=== PATIENT | male | born 1960 | race Caucasian/White ===

== ENCOUNTER → 2024-07-17 13:47 | Outpatient (REF) | payer BC, SELFPAY | LOC: RCS 13:47 | PROVIDERS: ATTENDING PHYSICIAN Student in an Organized Health Care Education/Training Program; FAMILY PHYSICIAN Nurse Practitioner Adult Health | DX: I25.10 Atherosclerotic heart disease of native coronary artery without angina pectoris (principal) | CPT/HCPCS: 93306 ==

== ENCOUNTER 2024-08-21 08:28 | Emergency (ER) | payer SELFPAY ==
[2024-08-21 08:54] VITALS: BMI 27.3
[2024-08-21 09:10] VITALS: BP 134/74
--- NOTE | 2024-08-21 09:18 | ED.GENMED ---
History of Present Illness
General
Chief Complaint: Breathing Problem
Source: patient
Time Seen by Provider: 08/21/24 08:49
History of Present Illness
History of Present Illness:
63-year-old male who presents after he was exposed to carbon oxide while responding to a call with an EMS provider. The patient reported a mild headache that is since resolved. He states he did go outside and open windows once he got in the
residence. He denies chest pain or shortness of breath. He denies palpitations. No other complaints at this time
Past History
Past History
ED Past Medical History: GERD and Hypercholesterolemia
ED Past Surgical History: Orthopedic
Social History
Tobacco: Non-smoker
Personal:
Living: with family
Employment: Employed
Phy Exam
Physical Exam
Physical Exam:
CONSTITUTIONAL Vital signs reviewed, Patient alert and oriented to person, place and time. Well-appearing
HEAD atraumatic, normocephalic.
EYES eyelids normal to inspection, Extraocular muscles intact, Conjunctiva normal, Sclera normal.
NECK normal range of motion, Trachea midline, no jugular venous distention.
RESP no respiratory distress
BACK No obvious deformities
UPPER EXTREMITY Gross Range of motion normal, gross motor strength normal
LOWER EXTREMITY Gross range of motion normal, Gross motor strength normal
NEURO Speech normal, No focal motor deficits include, [place] coma scale 15, Memory normal, Cranial Nerves intact to screening exam.
SKIN Skin warm, dry, and normal in color.
PSYCHIATRIC Patient oriented to person place and time, Normal affect.
Scores
Heart Failure Risk
Heart Failure Risk Score: Not Applicable
Course
Vital Signs
Initial and Last Documented VS:
Initial Vital Signs
Pulse Ox
98
08/21/24 08:49
Last Documented Vital Signs
Temp Pulse Resp BP Pulse Ox
98.1 F 84 16 134/74 98
08/21/24 09:10 08/21/24 09:10 08/21/24 09:10 08/21/24 09:10 08/21/24 09:10
MDM/Problems Addressed
MDM/Problems Addressed:
Carbon monoxide exposure
*Pulse Oximetry
Patient hypoxic: no
*Critical Care Note
Total Time (30-74mins, 75-104mins- exclusive of procedures): Not Applicable
Data Reviewed
Source: patient
Prescriptions/Medications Considered But Not Given:
Considered nonrebreather and oxygen treatment but patient asymptomatic
Patient Management
Escalation/DeEscalation of care consider admission/obs:
Bedside finger monitor shows less than 3%. Asymptomatic. Okay for discharge
ED Attending Note
-
Portions of this chart may have been created with voice recognition software.� Occasional wrong word or��sound alike� substitutions may have occurred due to the inherent limitations of voice recognition software.
Discharge Plan
Departure
Patient Disposition: Home (Routine Discharge)
Date of Disposition: 08/21/24
Time of Disposition: 09:19
Patient with high blood pressure during this ER visit?: No
Discharge Problem:
Carbon monoxide exposure
Instructions: Carbon Monoxide Poisoning (DC)
Prescriptions:
No Action
aspirin 81 MG tablet,delayed release (DR/EC)
81 mg PO DAILY@1700
hannah Victoria B.animalis 1 EACH capsule
1 ea PO DAILY@1700
Prevagen
2 cap PO DAILY
melatonin 5 MG tablet
5 mg PO HSPRN PRN (Reason: insomnia) 0RF
famotidine [Pepcid AC] 20 MG tablet
20 mg PO DAILY Qty: 30 1RF
metoprolol succinate 50 MG tablet extended release 24 hr
50 mg PO DAILY
Referrals:
Roldan Mann MD [Family Provider] -
Activity Restrictions/Additional Instructions:
Return immediately for headache, vomiting, chest pain, weakness of any kind or any other concerns.
Interventions
Interventions:
*Risk Screen - Suicide Last Done: 08/21/24 08:49
*General Assessment Last Done: 08/21/24 08:49
*Neglect/Abuse Screening Last Done: 08/21/24 08:49
ED- Fall Risk Assessment Last Done: 08/21/24 08:49
*ED COVID-19 Vaccine History Last Done: 08/21/24 08:49
*Nursing Disposition Last Done: 08/21/24 09:25
ED- Cardiac Assessment Last Done: 08/21/24 08:49
ED- Pulmonary Assessment Last Done: 08/21/24 08:49
Discharge Date and Time
Discharge Date/Time: 08/21/24 09:26
Print Language: OCCITAN
== END 2024-08-21 09:26 | disposition home or self-care (01) ==
LOC: EMR 08:28
PROVIDERS: EMERGENCY PHYSICIAN Emergency Medicine; FAMILY PHYSICIAN Internal Medicine
DX: T58.91XA Toxic effect of carbon monoxide from unspecified source, accidental (unintentional), initial encounter (principal); R51.9 Headache, unspecified; Y92.009 Unspecified place in unspecified non-institutional (private) residence as the place of occurrence of the external cause; Y93.89 Activity, other specified; Y99.0 Civilian activity done for income or pay; Z57.5 Occupational exposure to toxic agents in other industries; E78.00 Pure hypercholesterolemia, unspecified; K21.9 Gastro-esophageal reflux disease without esophagitis
CPT/HCPCS: 99283

== ENCOUNTER → 2024-09-11 07:23 | Outpatient (REF) | payer BC, SELFPAY | LOC: RAD 07:23 | PROVIDERS: ATTENDING PHYSICIAN Nurse Practitioner Adult Health | DX: R17 Unspecified jaundice (principal); R10.11 Right upper quadrant pain | CPT/HCPCS: 76700 ==